=== PATIENT | female | born 2005 | race Caucasian/White ===

== ENCOUNTER 2025-01-28 07:44 | Inpatient (IN) | payer BC ==
[2025-01-28 08:36] LABS: APPEARANCE,URINE CLEAR (Clear); GLUCOSE,URINE NEGATIVE (Negative); OCCULT BLOOD,URINE TRACE-INTACT (Negative)
[2025-01-28 08:59] LABS: MEAN PLATELET VOLUME 11.7 fl (9.4-12.3); NRBC ABSOLUTE 0.00 (0.00-0.03); NRBC PERCENT 0.0 % (0.0-0.2); PLATELET COUNT,PLT 152 K/mm3 (150-400); RED BLOOD CELL COUNT 4.37 M/mm3 (4.10-5.30); WHITE BLOOD CELL COUNT,WBC 13.45 K/mm3 (4.5-13.5)
[2025-01-28] MEDS ORDERED: Sodium Chloride 0.9% 10 ML Syringe FLUSH PRN (09:13)
[2025-01-28] MEDS ORDERED: Ondansetron 4 MG/2 ML SDV IVPUSH PRN (09:13)
[2025-01-28] MEDS ORDERED: Nalbuphine 10 MG/1 ML Vial IVPUSH PRN (09:13)
[2025-01-28] MEDS ORDERED: Oxytocin/0.9 % Sodium Chloride 30 UNIT/500 ML BAG IV SCH (09:15)
[2025-01-28] MEDS: Lactated Ringers 1,000 ML IV ONE (09:27)
[2025-01-28] MEDS: Oxytocin/0.9 % Sodium Chloride 30 UNIT/500 ML BAG IV SCH (09:35)
[2025-01-28 09:39] LABS: A/G RATIO 0.7 (1-2); ALANINE AMINOTRANSFERASE,ALT 176.0 U/L (14-59); ASPARTATE AMNIOTRANSFERASE,AST 343.0 U/L (15-37); BILIRUBIN TOTAL 0.5 mg/dL (0.2-1.0); BLOOD UREA NITROGEN,BUN 9.0 mg/dL (7-18); CARBON DIOXIDE,CO2 26.0 mEq/L (21-32); CHLORIDE,CL 105.0 mEq/L (98-107); CREATININE 0.8 mg/dL (0.55-1.02); EST CRCL DRUG DOSING (CG) 93.56 mL/min; ESTIMATED GFR 109.0 mL/min (>60); GLUCOSE RANDOM 83.0 mg/dL (70-99); POTASSIUM,K 3.7 mEq/L (3.5-5.1); PROTEIN TOTAL,TP 6.6 g/dl (6.4-8.2); SODIUM,NA 141.0 mEq/L (136-145)
[2025-01-28] MEDS ORDERED: Lactated Ringers 1,000 ML IV SCH (11:30)
[2025-01-28] MEDS: Ondansetron 4 MG/2 ML SDV IVPUSH ONE (11:30)
[2025-01-28 13:02] LABS: CREATININE,URINE RAND 153.1 mg/dL (30.0-125.0); PROTEIN CREATININE RATIO,URINE 205.1 mg/g (0-149); PROTEIN,URINE RANDOM 31.4 mg/dL (0.0-11.8)
[2025-01-28 14:24] LABS: MEAN PLATELET VOLUME 11.4 fl (9.4-12.3); NRBC ABSOLUTE 0.00 (0.00-0.03); NRBC PERCENT 0.0 % (0.0-0.2); PLATELET COUNT,PLT 115 K/mm3 (150-400); RED BLOOD CELL COUNT 3.53 M/mm3 (4.10-5.30); WHITE BLOOD CELL COUNT,WBC 18.09 K/mm3 (4.5-13.5)
[2025-01-28 14:54] LABS: A/G RATIO 0.7 (1-2); ALANINE AMINOTRANSFERASE,ALT 169.0 U/L (14-59); ASPARTATE AMNIOTRANSFERASE,AST 339.0 U/L (15-37); BILIRUBIN TOTAL 0.9 mg/dL (0.2-1.0); BLOOD UREA NITROGEN,BUN 9.0 mg/dL (7-18); CARBON DIOXIDE,CO2 22.0 mEq/L (21-32); CHLORIDE,CL 105.0 mEq/L (98-107); CREATININE 0.7 mg/dL (0.55-1.02); EST CRCL DRUG DOSING (CG) 106.93 mL/min; ESTIMATED GFR 128.0 mL/min (>60); GLUCOSE RANDOM 118.0 mg/dL (70-99); POTASSIUM,K 4.0 mEq/L (3.5-5.1); PROTEIN TOTAL,TP 5.5 g/dl (6.4-8.2); SODIUM,NA 137.0 mEq/L (136-145)
[2025-01-28] MEDS: Witch Hazel Medicated Pads 40/Jar TOP PRN (16:32)
[2025-01-28] MEDS: Benzocaine/Menthol 20%-0.5% Spray 78 GM Cannister TOP PRN (16:32)
[2025-01-28] MEDS ORDERED: Sodium Chloride 0.9% 10 ML Syringe FLUSH SCH (21:00)
[2025-01-29 05:58] LABS: MEAN PLATELET VOLUME 11.2 fl (9.4-12.3); NRBC ABSOLUTE 0.00 (0.00-0.03); NRBC PERCENT 0.0 % (0.0-0.2); PLATELET COUNT,PLT 97 K/mm3 (150-400); RED BLOOD CELL COUNT 2.92 M/mm3 (4.10-5.30); WHITE BLOOD CELL COUNT,WBC 13.18 K/mm3 (4.5-13.5)
[2025-01-29 06:23] LABS: A/G RATIO 0.7 (1-2); ALANINE AMINOTRANSFERASE,ALT 100.0 U/L (14-59); ASPARTATE AMNIOTRANSFERASE,AST 89.0 U/L (15-37); BILIRUBIN TOTAL 0.4 mg/dL (0.2-1.0); BLOOD UREA NITROGEN,BUN 10.0 mg/dL (7-18); CARBON DIOXIDE,CO2 28.0 mEq/L (21-32); CHLORIDE,CL 107.0 mEq/L (98-107); CREATININE 0.7 mg/dL (0.55-1.02); EST CRCL DRUG DOSING (CG) 106.93 mL/min; ESTIMATED GFR 128.0 mL/min (>60); GLUCOSE RANDOM 75.0 mg/dL (70-99); POTASSIUM,K 4.7 mEq/L (3.5-5.1); PROTEIN TOTAL,TP 4.9 g/dl (6.4-8.2); SODIUM,NA 140.0 mEq/L (136-145)
[2025-01-29 16:10] LABS: MEAN PLATELET VOLUME 11.3 fl (9.4-12.3); NRBC ABSOLUTE 0.00 (0.00-0.03); NRBC PERCENT 0.0 % (0.0-0.2); PLATELET COUNT,PLT 116 K/mm3 (150-400); RED BLOOD CELL COUNT 2.72 M/mm3 (4.10-5.30); WHITE BLOOD CELL COUNT,WBC 12.01 K/mm3 (4.5-13.5)
[2025-01-29 16:29] LABS: A/G RATIO 0.7 (1-2); ALANINE AMINOTRANSFERASE,ALT 90.0 U/L (14-59); ASPARTATE AMNIOTRANSFERASE,AST 67.0 U/L (15-37); BILIRUBIN TOTAL 0.3 mg/dL (0.2-1.0); BLOOD UREA NITROGEN,BUN 10.0 mg/dL (7-18); CARBON DIOXIDE,CO2 28.0 mEq/L (21-32); CHLORIDE,CL 106.0 mEq/L (98-107); CREATININE 0.7 mg/dL (0.55-1.02); EST CRCL DRUG DOSING (CG) 106.93 mL/min; ESTIMATED GFR 128.0 mL/min (>60); GLUCOSE RANDOM 86.0 mg/dL (70-99); POTASSIUM,K 4.0 mEq/L (3.5-5.1); PROTEIN TOTAL,TP 5.1 g/dl (6.4-8.2); SODIUM,NA 140.0 mEq/L (136-145)
[2025-01-30 05:46] LABS: MEAN PLATELET VOLUME 10.7 fl (9.4-12.3); NRBC ABSOLUTE 0.00 (0.00-0.03); NRBC PERCENT 0.0 % (0.0-0.2); PLATELET COUNT,PLT 115 K/mm3 (150-400); RED BLOOD CELL COUNT 2.81 M/mm3 (4.10-5.30); WHITE BLOOD CELL COUNT,WBC 11.09 K/mm3 (4.5-13.5)
[2025-01-30 06:08] LABS: A/G RATIO 0.7 (1-2); ALANINE AMINOTRANSFERASE,ALT 78.0 U/L (14-59); ASPARTATE AMNIOTRANSFERASE,AST 48.0 U/L (15-37); BILIRUBIN TOTAL 0.3 mg/dL (0.2-1.0); BLOOD UREA NITROGEN,BUN 11.0 mg/dL (7-18); CARBON DIOXIDE,CO2 28.0 mEq/L (21-32); CHLORIDE,CL 106.0 mEq/L (98-107); CREATININE 0.7 mg/dL (0.55-1.02); EST CRCL DRUG DOSING (CG) 106.93 mL/min; ESTIMATED GFR 128.0 mL/min (>60); GLUCOSE RANDOM 74.0 mg/dL (70-99); POTASSIUM,K 3.8 mEq/L (3.5-5.1); PROTEIN TOTAL,TP 5.5 g/dl (6.4-8.2); SODIUM,NA 141.0 mEq/L (136-145)
== END 2025-01-30 11:40 | disposition home or self-care (01) | DRG 560 ==
LOC: JD.OBCHECK 07:44 → JD.OB 07:53 → JD.OBCHECK 09:13 → JD.OB 09:13 → OBSVTOIN 12:54 → JD.MS 12:55 → JD.OB 01-29 06:06
PROVIDERS: ADMIT Obstetrics & Gynecology; ATTEND Obstetrics & Gynecology
PROC: 10E0XZZ Delivery of Products of Conception, External Approach (ICD-10-PCS; principal; 2025-01-28)
PROC: 10907ZC Drainage of Amniotic Fluid, Therapeutic from Products of Conception, Via Natural or Artificial Opening (ICD-10-PCS; 2025-01-28)
PROC: 0KQM0ZZ Repair Perineum Muscle, Open Approach (ICD-10-PCS; 2025-01-28)
PROC: 3E0334Z Introduction of Serum, Toxoid and Vaccine into Peripheral Vein, Percutaneous Approach (ICD-10-PCS; 2025-01-29)
DX: O42.02 Full-term premature rupture of membranes, onset of labor within 24 hours of rupture (principal); Z37.0 Single live birth; O14.25 HELLP syndrome, complicating the puerperium; O26.893 Other specified pregnancy related conditions, third trimester; O70.1 Second degree perineal laceration during delivery; O90.81 Anemia of the puerperium; Z3A.37 37 weeks gestation of pregnancy; Z88.0 Allergy status to penicillin; Z67.11 Type A blood, Rh negative; Z98.890 Other specified postprocedural states
CPT/HCPCS: 36415; 59025; 59409; 76705; 76705-26; 80053; 81001; 82570; 84112; 84156; 85027; 85461; 86592; 86850; 86870; 86900; 86901; A9270-GY; C1758; J2003; J2791; J7120; J7999